=== PATIENT | female | born 1965 | race Caucasian/White ===

== ENCOUNTER → 2016-10-27 | Outpatient (CLI) | payer BC ==
--- NOTE | 2016-10-27 15:30 | DI ---
Indication: ITS.REASON: M79.602 LEFT ARM PAIN PROCEDURE: US VENOUS DUPLEX, UPPER EXT LT: Encounter: Initial Comparison: None Technique: Color Doppler duplex and grayscale sonographic imaging of the left upper extremity was performed. FINDINGS: There is no evidence for acute deep venous thrombosis in the left arm. The left internal jugular, subclavian, axillary and paired brachial veins were evaluated; compression and augmentation were applied where possible. In addition, color and pulsed Doppler demonstrate appropriate spontaneous flow, cardiac pulsatility and variation with respiration. IMPRESSION: No evidence of acute DVT in the left upper extremity. .
== END ==
LOC: IMA 14:32
PROVIDERS: ATTEND Family Medicine
DX: M79.602 Pain in left arm (principal)

== ENCOUNTER → 2016-10-27 | Outpatient (CLI) | payer BC | LOC: IMA 14:39 | PROVIDERS: ATTEND Physician Assistant Medical | DX: L02.412 Cutaneous abscess of left axilla (principal); R22.32 Localized swelling, mass and lump, left upper limb ==

== ENCOUNTER 2017-02-18 12:55 | Observation (INO) ==
[2017-02-18] MEDS ORDERED: HYDROMORPHONE 2 MG/ML INJECTION IVP ONE ×2 (13:10→16:13)
[2017-02-18] MEDS ORDERED: ONDANSETRON 4 MG/2 ML INJECTION IVP ONE (13:10)
[2017-02-18] MEDS ORDERED: NS 1,000 ML IV ONE (13:10)
[2017-02-18] MEDS ORDERED: PROCHLORPERAZINE 10 MG/2 ML INJECTION IVP ONE (13:10)
--- NOTE | 2017-02-18 13:28 | Emergency Department Report ---
Abdominal Pain HPI - General Chief Complaint: Abdominal Pain Stated Complaint: abd pain Time Seen by Provider: 02/18/17 13:09 - History of Present Illness HPI narrative: 51-year-old female with tabs 10 abdominal pain. Pain is midepigastric, severe, intermittent. She was seen by her primary care provider in [place] and referred here for CT scan and further workup. Apparently she was vomiting quite a few times overnight and had diarrhea which was watery. She's been seen in the ER "several times" in the last 2 weeks for abdominal pain. Her states that she was given enemas twice this last week, but did not resolve the pain. Today she went to the clinic to see her doctor, but was sick there and was bad enough that he sent her to the emergency room here. He did call me to let me know that she was coming and that he had ordered labs and CT, but that there CT imaging was down. He recommended we follow up on her and I agreed. - Related Data Home Medications Medication Instructions Recorded Confirmed Lidocaine For Magic Mouthwash 15 ml SSP QID 01/18/17 02/18/17 [Xylocaine Viscous] Oxycodone HCl [Oxycontin] 15 mg PO Q6HPRN 01/18/17 02/18/17 Propranolol HCl [Inderal LA] 60 mg PO BID 01/18/17 02/18/17 Tramadol [Ultram] 50 mg PO Q6HR 01/18/17 02/18/17 raNITIdine HCl [Ranitidine HCl] 300 mg PO BID 01/18/17 02/18/17 Morphine Sulfate 15 mg PO BID 02/18/17 02/18/17 Allergies Allergy/AdvReac Type Severity Reaction Status Date / Time ciprofloxacin [From Cipro] Allergy Severe Hives Verified 02/18/17 13:02 aspirin Allergy Dizziness Verified 02/18/17 13:02 Review of Systems All systems: reviewed and negative except as stated PFSH Patient Stated Medical History Migraine Yes Gastroesophageal Reflux Yes Disease Other Musculoskeletal Yes: fibromyalgia Bipolar Disorder Yes Depression Yes Post Traumatic Stress Disorder Yes Surgical History: Hysterectomy. EGD. Colonoscopy - Social History Smoking status: Never smoker Substance use type: does not use Physical Exam - Limitations Limitations: no limitations - General General appearance: alert, in distress - Normal Exams: Head:: Normocephalic without trauma Chest/Respirations:: Clear all amador, with good airflow, and symmetry bilaterally Cardiovascular:: Regular rate and rhythm, without murmur or gallop, Pulses 2+ all extremities, capillary refill, <2 seconds all extremities Neurological:: Patient is alert, and oriented, cranial nerves, motor/sensory/ cerebellar, exams w/o gross deficits, to observation Psychiatric:: Patient exhibits, appropriate attention, emotion and affect - Abdominal Exam Abdominal exam: Present: soft, tenderness (midepigastric), guarding ( midepigastric), hypoactive bowel sounds Course Vital Signs Temperature 98.3 F 02/18/17 13:02 Pulse Rate 53 L 02/18/17 13:02 Respiratory Rate 17 02/18/17 13:02 Blood Pressure 122/88 02/18/17 13:02 Pulse Oximetry 100 02/18/17 13:02 Temperature 98.3 F 02/18/17 13:02 Pulse Rate 53 L 02/18/17 13:02 Respiratory Rate 17 02/18/17 13:02 Blood Pressure 122/88 02/18/17 13:02 Pulse Oximetry 100 02/18/17 13:02 Abdominal Pain - MDM Narrative Medical decision making narrative: Patient was given 1 L normal saline IV, Compazine 10 mg IV and Zofran 4 mg IV. She continued to have vomiting and had diarrhea bad enough that she needed assistance cleaning up. She was given Dilaudid 0.5 mg IV for pain. Some improvement in symptoms from this. Labs reviewed and white count is 16.1 with a significant left shift, hematocrit is elevated. Creatinine and BUN are normal. Lactate is 2.1. Blood cultures were obtained, stool studies ordered. CT scan shows gastroenteritis and rectosigmoid colitis. Patient will be admitted observation for hydration and pain management. - Lab Data Result diagrams: 02/18/17 13:47 02/18/17 13:47 Disposition Clinical Impression: Gastroenteritis, Colitis Disposition: 02 To OBS [facility] Condition: Improved Prescriptions: No Action Tramadol [Ultram] 50 mg PO Q6HR raNITIdine HCl [Ranitidine HCl] 300 mg PO BID Morphine Sulfate 15 mg PO BID Lidocaine For Magic Mouthwash [Xylocaine Viscous] 15 ml SSP QID Propranolol HCl [Inderal LA] 60 mg PO BID Oxycodone HCl [Oxycontin] 15 mg PO Q6HPRN Referrals: Usama Tellez [Family Provider] - Time of Disposition: 15:37 - Seen By: physician
--- OUTSIDE RECORDS SUMMARY | 2017-02-18 13:38 | External Medical Summary | Summary of Care ---
:1965 Author Name Dg Greer M.D. Address [address], [place] [id number] Care Team Providers Name Role Phone Dg Greer M.D. Unavailable Unavailable Med Jarrell M.D. Unavailable Unavailable Josue Worrell, SUZETTE,, F Krishna Unavailable Unavailable Roberto Worrell, Luisana Troncoso Unavailable Unavailable Korey Greer Primary Care Provider Unavailable Unavailable Unavailable Unavailable Functional Status Functional Status Health Issues Name Dates Details Functional status health issues are not documented Status: Cognitive Status Health Issues Name Dates Details Cognitive status health issues are not documented Status: Problems Name Dates Details Lower back pain (724.2, M54.5) Status: Active Irritable bowel syndrome (564.1, K58.9) Status: Active Migraine headache (346.90, G43.909) Status: Active Seizure disorder (345.90, G40.909) Status: Active Hypertension (401.9, I10) Status: Active Esophageal reflux (530.81, K21.9) Status: Active Dyspepsia (536.8, K30) Status: Active Vitamin B12 deficiency (266.2, E53.8) Status: Active 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 Started 30-Jul-2011 ActivePropranolol HCl - 60 MG Oral Tablet Take One Tablet By Mouth Twice Daily Quantity: 60 Refills: 4 Korey Greer M.D. Started ActiveTraMADol HCl - 50 MG Oral Tablet TAKE 1 OR 2 TABLETS EVERY 6 HOURS NEEDED FOR PAIN, must last 1 month-FILL ON 09/20/2015 Quantity: 240 Refills: 0 Korey Greer M.D. Started 04-Feb-2012 ActivePhenytoin Sodium Extended 100 MG Oral Capsule 3 CAPSULES BY MOUTH EVERY DAY Quantity: 90 Refills: 2 Aba Mejia M.D. Started 09-Feb-2012 ActiveRizatriptan Benzoate 10 MG Oral Tablet Dispersible ONE TABLET BY MOUTH AT ONSET OF HEADACHE MAY REPEAT EVERY 2 HOURS NEEDED MAX 2 IN 24 HOURS Quantity: 6 Refills: 0 Aba Mejia M.D. Started 25-Oct-[address] 400-400-40 MG/5ML Oral Suspension [id number] times dailyas needed for pain. Quantity: 1440 Refills: 3 Georgia Jarrell M.D. Started 09-Jul-2013 Active Allergies and Adverse Reactions Name Dates Details Aspirin TABS Status: Active Ciprofloxacin HCl TABS Status: Active Past Medical History Name Dates Details History of allergy (V15.09, Z88.9) Status: Resolved History of Change in bowel habits (787.99, R19.4) Status: Resolved History of dizziness (V13.89, Z87.898) Status: Resolved History of edema (V13.89, Z87.898) Status: Resolved History of fatigue (V13.89, Z87.898) Status: Resolved History of fibromyositis (V13.59, Z87.39) Status: Resolved History of Generalized pain (780.96, R52) Status: Resolved History of headache (V13.89, Z87.898) Status: Resolved History of headache (V13.89, Z87.898) Status: Resolved History of Infection of kidney (590.9, N15.9) Status: Resolved History of low back pain (V13.59, Z87.39) Status: Resolved History of migraine headaches (V12.49, Z86.69) Status: Resolved History of nausea and vomiting (V12.79, Z87.898) Status: Resolved History of Neck stiffness (723.5, M43.6) Status: Resolved History of Numbness (782.0, R20.0) Status: Resolved History of Palpitations (785.1, R00.2) Status: Resolved History of Pneumonia (V12.61) Status: Resolved History of Recent Change In Weight Status: Resolved History of shortness of breath (V13.89, Z87.898) Status: Resolved History of Sjogrens syndrome (710.2, M35.00) Status: Resolved History of tinnitus (V12.49, Z86.69) Status: Resolved History of Urinary Tract Infection (V13.02) Status: Resolved History of Visual impairment (369.9, H54.7) Status: Resolved Procedures Procedure Dates Details History of Tubal Stabilization History of Cholecystectomy History of Complete Colonoscopy Completed:20-Oct-2009 History of Tonsillectomy History of Hysterectomy History of Colonoscopy (Fiberoptic) History of Dilation And Curettage History of Gastroscopy With Biopsy Completed:28-Sep-2011 History of Upr GI Endosc W/ Balloon Completed:28-Sep-2011 Dilation Of Esoph (Less Than 30 Mm) Comprehensive Metabolic Panel 1212 Ordered:23-Sep-2015 THYROID STIM. HORMONE 3602 Ordered:23-Sep-2015 CBC w/ Auto Diff 7150 Ordered:23-Sep-2015 Immunization Name Dates Details DTaP Administered on:06-Oct-2012 Family History Unknown Family Member Name Dates Details Family history of Hypertension (V17.49) Comments: Family History Status: Active Family history of Reported Cholesterol Level Was High Comments: Family History Status: Active Family history of Glaucoma Comments: Family History Status: Active Family history of Prostate Cancer (V16.42) Comments: Family History Status: Active Family history of Breast Cancer (V16.3) Comments: Family History Status: Active Family history of Malignant Melanoma Of The Skin (V16.8) Comments: Family History Status: Active Family history of Paternal Grandfather At Age ____ Comments: Family History Status: Active Family history of Cancer Comments: Family History Status: Active Family history of Maternal Grandmother Is Comments: Family History Status: Active Family history of Arthritis (V17.7) Comments: Family History Status: Active Family history of Multiple Sclerosis Comments: Family History Status: Active Family history of Chronic Common Migraine (Without Aura) Comments: Family History Status: Active Family history of Systemic Lupus Erythematosus Comments: Family History Status: Active Mother Name Dates Details Family history of Diabetes Mellitus (V18.0) Status: Active Family history of Hyperthyroidism Status: Active Family history of Mother At Age ____ Status: Active Family history of Aneurysm Of The Abdominal Aorta Status: Active Father Name Dates Details Family history of Heart Disease (V17.49) Status: Active Family history of Father At Age ____ Status: Active Family history of Congestive Heart Failure Status: Active Family history of Hypertension (V17.49) Status: Active Family history of Chronic Obstructive Pulmonary Disease Status: Active Family history of Diabetes Mellitus (V18.0) Status: Active Social History Name Dates Details Smoking StatusNever smoker Vital Signs Date Test Result Details 23-Sep-2015 16:18 BP Systolic 126 mm[Hg] Status: BP Diastolic 94 mm[Hg] Status: Weight 174.6 lb Status: Body Mass Index Calculated 29.06 kg/m2 Status: Body Surface Area Calculated 1.87 m2 Status: Results Date Description Value Details Results not documented Plan of Care Planned Observations Name Dates Details Planned Goals not documented Goal Planned Encounters Appointment; Provider: Lauro Rush On 26-Sep-2015 13:30 Appointment; Provider: Cale Pimentel On 02-Sep-2008 13:00 Instructions Instructions not documented Encounters Appointment; Korey Greer On 23-Sep-2015 Encounter Diagnosis: Problem not documented 16:00 Appointment; Korey Greer On 27-Oct-2013 Encounter Diagnosis: Problem not documented 09:45 Appointment; Kelvin Rob On 25-Oct-2013 Encounter Diagnosis: Problem not documented 15:45
--- OUTSIDE RECORDS SUMMARY | 2017-02-18 13:39 | External Medical Summary ---
:1965 Author Organization [facility]. Summary purpose CCDA Sent to [facility] Chief Complaint and Reason for Visit No authorized Reason for Visit (Admitting Diagnosis) is available for this visit. Problem list No authorized problems tracked for continuity of care are available for this visit. Encounters No authorized problems tracked for encounter diagnoses are available for this visit. Medications No medications recorded for this patient visit Allergies, adverse reactions, alerts Allergen Category Ingredient Status Reaction Severity Onset Cipro Drug Cipro Active Cipro Drug ciprofloxacin Active aspirin Drug aspirin Active Immunizations No immunizations recorded for this patient visit Relevant diagnostic tests and/or laboratory data No authorized results are available for this patient visit History of procedures No procedures recorded for this patient visit. Functional status No functional or cognitive status observations are available for this visit. Vital signs Type Value Date Respirations 18 :55 Pulse 85 :55 O2 Saturation 99% :55 Systolic Blood Press 136mm/HG 10-49-193282:55 Diastolic Blood Pres 71mm/HG 70-25-402443:55 Temperature (Fahr) 98.5Degrees 07-04-631713:55 Social history No Social History or smoking status observations were recorded for this visit. ( Unknown if ever smoked.) Treatment Plan No treatment plan text is available for this visit. Hospital discharge instructions No discharge instruction text is available for this visit.
--- OUTSIDE RECORDS SUMMARY | 2017-02-18 13:39 | External Medical Summary ---
:1965 Author Organization [facility]. Summary purpose CCDA Sent to [facility] Chief Complaint and Reason for Visit Admit Diagnosis 1 PEPTIC ULCER NOS Problem list No authorized problems tracked for continuity of care are available for this visit. Encounters No authorized problems tracked for encounter diagnoses are available for this visit. Medications No home medications recorded for this patient visit Allergies, adverse reactions, alerts No allergy information is available for this patient. Immunizations No immunizations recorded for this patient visit Relevant diagnostic tests and/or laboratory data RESULTS CBC :45:00 Result Normal Range Units WBC 5.01 4.8-10.8 x103/mm3 Neutrophil % 60.7 50-70 % Lymph % 28.5 20-50 % Williams % H 10.6 1.0-9.0 % Eosinophil % 0.0 0-4 % Basophil % 0.2 0-2 % Neutrophil # 3.04 3.0-7.0 x103/mm3 Lymph # 1.43 1.0-4.0 x103/mm3 Williams # 0.53 0.0-0.8 x103/mm3 Eosinophil # 0.00 0-0.5 x103/mm3 Basophil # 0.01 0-0.2 x103/mm3 RBC 4.80 4.20-5.40 x103/mm3 HGB 14.6 12.0-16.0 g/dl HCT 43.8 37.0-47.0 % MCV 91.3 81-99 FL MCH 30.4 27.0-31.0 pg MCHC 33.3 32.0-36.0 g/dl RDW 13.8 12-15 % Platelet 181 150-400 x103/mm3 MPV H 12.1 6.0-10.0 FL Chemistry Group :45:00 Result Normal Range Units Sodium 142 134-145 mmol/L Potassium 4.2 3.6-5.0 mmol/L Chloride 102 98-107 mmol/L CO2 29 22-30 mmol/L Glucose 109 75-110 mg/dl BUN 13 9-20 mg/dl Creatinine .9 0.8-1.7 mg/dl Total Protein 7.2 6.3-8.2 g/dl Albumin 4.0 3.5-5.0 g/dl Calcium 9.5 8.4-10.2 mg/dl Alk Phos 53 38-126 U/L AST 23 14-36 U/L ALT 13 11-66 U/L T Bili .3 0.2-1.3 mg/dl A/G Ratio 1.3 Ratio History of procedures Procedure Code Code Type Description Date Performed Performing Physician 42626 CPT-4 COMPLETE CBC AUTOMATED 01-13-2015 JANIS BURRIS 46871 CPT-4 COMPREHEN METABOLIC 01-13-2015 JANIS BURRIS PANEL Functional status No functional or cognitive status observations are available for this visit. Vital signs No authorized vital signs are available for this visit. Social history No Social History or smoking status observations were recorded for this visit. ( Unknown if ever smoked.) Treatment Plan No treatment plan text is available for this visit. Hospital discharge instructions No discharge instruction text is available for this visit.
--- OUTSIDE RECORDS SUMMARY | 2017-02-18 13:39 | External Medical Summary ---
:1965 Author Organization [facility]. Summary purpose CCDA Sent to [facility] Chief Complaint and Reason for Visit No [...]
--- OUTSIDE RECORDS SUMMARY | 2017-02-18 13:39 | External Medical Summary ---
:1965 Author Organization [facility]. Summary purpose CCDA Sent to [facility] Chief Complaint and Reason for Visit Admit Diagnosis 1 BURNING WITH URINATION Problem list No authorized problems tracked for [...] Relevant diagnostic tests and/or laboratory data RESULTS Urinalysis :00:00 Result Normal Range Units Site UNK Color Yellow Urine Appearance Turbid Specific [place] 1.030 1.005-1.030 pH 5.5 5.0-9.0 Protein Negative Negative Glucose Negative Negative Ketones Negative Negative Bilirubin Negative Negative Blood Negative Negative Nitrite Negative Negative Urobilinogen 0.2 0.20 mg/dl Leukocyte Negative Negative Amorphous Crystals 4+ Calcium Oxalate Crystals 1+ Squamous Epi's N6-10 Urine Bacteria NONESEEN Urine WBC N0-2 Reference Lab Group :00:00 Result Normal Range Units Culture Urine See Comment .Site: Received : 04/16/16 19:37 .Order#: [id number] Urine Culture FINAL 04/17/16 15:06 S .Normal urogenital/skin santiago present .S: Performed at:[place], [place] CLIA#[id number] DENT FOR RESULTS: * - NEW RESULT - RESULT WAS MODIFIED AFTER FINAL STATUS SET Urine Culture performed at [facility] Reference Lab, [address] [place] [address] Entry Engineer Belia Fay DO Urinalysis with Microscopic :00:00 Result Normal Range Units Site UNK Color Yellow Urine Appearance Turbid Specific [place] 1.030 1.005-1.030 pH 5.5 5.0-9.0 Protein Negative Negative Glucose Negative Negative Ketones Negative Negative Bilirubin Negative Negative Blood Negative Negative Nitrite Negative Negative Urobilinogen 0.2 0.20 mg/dl Leukocyte Negative Negative Amorphous Crystals 4+ Calcium Oxalate Crystals 1+ Squamous Epi's N6-10 Urine Bacteria NONESEEN Urine WBC N0-2 History of procedures No procedures recorded for this patient visit. Functional status Cognitive Status Finding Observation Time Level of Consciousne Alert :31 Oriented to Person Yes :[address] Yes :31 Oriented to Time Yes :31 Vital signs Type Value Date Respirations 16 :58 Pulse 78 :58 O2 Saturation 95% :58 Systolic Blood Press 152mm/HG :58 Diastolic Blood Pres 56mm/HG :58 Temperature (Fahr) 98.1Degrees :58 Social history Type Value Smoking Status NEVER SMOKER Treatment Plan No treatment plan text is available for this visit. Hospital discharge instructions No discharge instruction text is available for this visit.
--- OUTSIDE RECORDS SUMMARY | 2017-02-18 13:39 | External Medical Summary | Summary of Care ---
:1965 Author Name Wesly Worrell, Med November Address [address] [place], [place] [id number] Care Team Providers Name Role Phone Dg Greer M.D. Unavailable Unavailable Wesly Worrell, Med November Unavailable Unavailable Josue Worrell, FACP,, F Krishna Unavailable Unavailable Luisana Mejia M.D. Unavailable Unavailable Korey Greer Primary Care Provider Unavailable Unavailable Unavailable Unavailable Functional Status Functional Status Health Issues Name Dates Details Functional status health issues are not documented Status: Cognitive Status Health Issues Name Dates Details Cognitive status health issues are not documented Status: Problems Name Dates Details Fever (780.60, R50.9) Status: Active Lower back pain (724.2, M54.5) Status: Active Dysuria (788.1, R30.0) Status: Active Irritable bowel syndrome (564.1, K58.9) Status: Active Migraine headache (346.90, G43.909) Status: Active Seizure disorder (345.90, G40.909) Status: Active Tendonitis, Achilles (726.71, M76.60) Status: Active Hypertension (401.9, I10) Status: Active Esophageal reflux (530.81, K21.9) Status: Active Dyspepsia (536.8, R10.13) Status: Active Encounter for screening for malignant neoplasm of colon (V76.51, Z12.11) Status: Active Muscle weakness of lower extremity (728.87, M62.81) Status: Active Bursitis of hip (726.5, M70.70) Status: Active Vitamin B12 deficiency (266.2, E53.8) Status: Active Female pelvic pain (625.9, R10.2) Status: Active 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 [facility], Started 09-Oct-2008 ActiveMaxalt-DIGITAL MEDIA BUYER 10 MG Oral Tablet Dispersible TAKE ONE TABLET BY MOUTH AT ONSET OF HEADACHE. MAY REPEAT EVERY 2 HOURS NEEDED. MAX OF 3 TALBETS IN 24 HOURS. Quantity: 6 Refills: 0 Korey Greer M.D. Started 15-Jun-2010 ActivePromethazine HCl - 25 MG Oral Tablet TAKE ONE TABLET BY MOUTH EVERY 6 HOURS Quantity: 30 Refills: 0 Korey Greer M.D. Started 30-Jul-2011 ActiveRanitidine HCl - 150 MG Oral Tablet take two tablets by mouth twice daily Quantity: 120 Refills: 12 Georgia Jarrell M.D. Started 28-Sep-2011 ActivePropranolol HCl - 60 MG Oral Tablet Take One Tablet By Mouth Twice Daily Quantity: 60 Refills: 4 Korey Greer M.D. Started ActiveTraMADol HCl - 50 MG Oral Tablet TAKE 1 OR 2 TABLETS EVERY 6 HOURS NEEDED FOR PAIN Quantity: 240 Refills: 0 Korey Greer M.D. [...] Advanced Max St 400-400-40 MG/5ML Oral Suspension [id number] times dailyas needed for pain. Quantity: 1440 Refills: 3 Georgia Jarrell M.D. Started 09-Jul-2013 ActiveTopamax 100 MG Oral Tablet TAKE 1 TABLET TWICE DAILY. Refills: 0 Started 25-Oct-2013 ActiveTiZANidine HCl - 4 MG Oral Tablet TAKE 1 TABLET 3 TIMES DAILY. Refills: 0 Started 25-Oct-2013 ActiveMethylPREDNISolone (Joseph) 4 MG Oral Tablet TAKE DIRECTED ON PATIENT INSTRUCTION CARD. Quantity: 1 Refills: 0 Korey Greer M.D. Started Active Allergies and Adverse Reactions Name Dates [...] Resolved History of nausea and vomiting (V12.79, Z87.19) Status: Resolved History of Neck stiffness (723.5, [...] History of Upr GI Endosc W/ Balloon Dilation Of Esoph Completed:28-Sep-2011 (Less Than 30 Mm) Procedures not documented Immunization Name Dates Details DTaP Administered on:06-Oct-2012 [...] smoker Vital Signs Date Test Result Details No Known Vitals to report Results Date Description Value Details Results not documented Plan of Care Planned Observations Name Dates Details Planned Goals not documented Goal Planned Encounters Appointment; Provider: Cale Pimentel On 02-Sep-2008 13:00 Instructions Instructions not documented Encounters Appointment; Korey Greer On 27-Oct-2013 Encounter Diagnosis: Problem not documented 09:45 Appointment; Kelvin Rob On 25-Oct-2013 Encounter Diagnosis: Problem not documented 15:45 Appointment; Krishna Salas On 08-Aug-2013 Encounter Diagnosis: Problem not documented 15:45 Appointment; Aba Mejia On 22-Jun-2013 Encounter Diagnosis: Problem not documented 14:00 Appointment; Erica Benz On 23-Feb-2013 Encounter Diagnosis: Problem not documented 15:00 Appointment; Kelvin Rob On 25-Jan-2013 Encounter Diagnosis: Problem not documented 16:30
--- OUTSIDE RECORDS SUMMARY | 2017-02-18 13:39 | External Medical Summary ---
:1965 Author Organization [facility]. Summary purpose CCDA Sent to [facility] Chief Complaint and Reason for Visit Admit Diagnosis 1 L CALF PAIN Problem list No authorized problems tracked for [...] for this patient visit History of procedures Procedure Code Code Type Description Date Performed Performing Physician 45835 CPT-4 EMERGENCY DEPT VISIT 10-29-2016 TALHA NOEL Functional status Cognitive Status Finding Observation Time Level of Consciousne Alert [id number] Oriented to Person Yes [id number]:[address] Yes [id number]:36 Oriented to Time Yes 14-19-318824:36 Vital signs Type Value Date Respirations 18 44-73-150210:40 Pulse 73 :40 O2 Saturation 97% :40 Systolic Blood Press 132mm/HG :40 Diastolic Blood Pres 95mm/HG 18-72-485096:40 Temperature (Fahr) 98.9Degrees 17-14-090983:40 Social history Type Value Smoking Status NEVER SMOKER Treatment Plan No treatment plan text is available for this visit. Hospital discharge instructions No discharge instruction text is available for this visit.
--- OUTSIDE RECORDS SUMMARY | 2017-02-18 13:39 | External Medical Summary ---
:1965 Author Organization [facility]. Summary purpose CCDA Sent to [facility] Chief Complaint and Reason for Visit [...] diagnostic tests and/or laboratory data RESULTS CBC [id number]:23:00 Result Normal Range Units WBC H 11.79 4.8-10.8 x103/mm3 Neutrophil % H 70.8 50-70 % Lymph % L 19.6 20-50 % [place] % 8.7 1.0-9.0 % Eosinophil % 0.8 0-4 % Basophil % 0.1 0-2 % Neutrophil # H 8.36 3.0-7.0 x103/mm3 Lymph # 2.31 1.0-4.0 x103/mm3 [place] # H 1.02 0.0-0.8 x103/mm3 Eosinophil # 0.09 0-0.5 x103/mm3 Basophil # 0.01 0-0.2 x103/mm3 RBC 4.75 4.20-5.40 x103/mm3 HGB 14.1 12.0-16.0 g/dl HCT 42.9 37.0-47.0 % MCV 90.3 81-99 FL MCH 29.7 27.0-31.0 pg MCHC 32.9 32.0-36.0 g/dl RDW 13.1 12-15 % Platelet H 422 150-400 x103/mm3 MPV 9.8 6.0-10.0 FL History of procedures Procedure Code Code Type Description Date Performed Performing Physician [id number] CPT-4 COMPLETE CBC, 10-26-2016 JANIS FELICIANO AUTOMATED Functional status No functional or cognitive status [...]
--- OUTSIDE RECORDS SUMMARY | 2017-02-18 13:39 | External Medical Summary ---
:1965 Author Organization [facility]. Summary purpose CCDA Sent to [facility] Chief Complaint and Reason for Visit Admit Diagnosis 1 CHEST PAIN Problem list No authorized problems tracked for continuity of care are available for this visit. Encounters No authorized problems tracked for encounter diagnoses are available for this visit. Medications No medications recorded for this patient visit Allergies, adverse reactions, alerts Allergen Category Ingredient Status Reaction Severity Onset Cipro Drug Cipro Active Cipro Drug ciprofloxacin Active Immunizations No immunizations recorded for this patient visit Relevant diagnostic tests and/or laboratory data RESULTS CBC :10:00 Result Normal Range Units WBC 5.09 4.8-10.8 x103/mm3 Neutrophil % L 48.1 50-70 % Lymph % 42.8 20-50 % [place] % 7.9 1.0-9.0 % Eosinophil % 1.0 0-4 % Basophil % 0.2 0-2 % Neutrophil # L 2.45 3.0-7.0 x103/mm3 Lymph # 2.18 1.0-4.0 x103/mm3 [place] # 0.40 0.0-0.8 x103/mm3 Eosinophil # 0.05 0-0.5 x103/mm3 Basophil # 0.01 0-0.2 x103/mm3 RBC 5.26 4.20-5.40 x103/mm3 HGB 15.5 12.0-16.0 g/dl HCT 45.6 37.0-47.0 % MCV 86.7 81-99 FL MCH 29.5 27.0-31.0 pg MCHC 34.0 32.0-36.0 g/dl RDW 12.9 12-15 % Platelet 317 150-400 x103/mm3 MPV H 11.0 6.0-10.0 FL Chemistry Group :10:00 Result Normal Range Units Sodium 135 134-145 mmol/L Potassium 4.4 3.6-5.0 mmol/L Chloride L 97 98-107 mmol/L CO2 24 22-30 mmol/L Glucose H 125 75-110 mg/dl BUN 10 9-20 mg/dl Creatinine .95 0.8-1.7 mg/dl eGFR 63 ml/min. Total Protein 7.5 6.3-8.2 g/dl Albumin 4.2 3.5-5.0 g/dl Calcium 9.9 8.4-10.2 mg/dl Alk Phos 85 38-126 U/L AST 25 14-36 U/L ALT 32 11-66 U/L T Bili .7 0.2-1.3 mg/dl A/G Ratio 1.3 Ratio Coagulation Group :10:00 Result Normal Range Units Protime 11.4 9.5-12.3 Sec INR 1.0 Special Chemistry Group :10:00 Result Normal Range Units Troponin I < 0.06 ng/ml NEGATIVE - 0.06-0.30 ng/ml INCONCLUSIVE - 0.31-0.64 ng/ml; Suggest Repeating in 2-4 hours POSITIVE - >0.64 ng/ml; Probable AMI History of procedures No procedures recorded for this patient visit. Functional status Cognitive Status Finding Observation Time Level of Consciousne Alert :43 Oriented to Person Yes :[address] Yes [id number]:43 Oriented to Time Yes [id number]:43 Vital signs Type Value Date Respirations 16 29-73-415814:10 Pulse 64 :10 O2 Saturation 100% :10 Systolic Blood Press 152mm/HG :10 Diastolic Blood Pres 98mm/HG 31-31-364662:10 Temperature (Fahr) 98.9Degrees :18 Social history Type Value Smoking Status NEVER SMOKER Treatment Plan No treatment plan text is available for this visit. Hospital discharge instructions No discharge instruction text is available for this visit.
[2017-02-18] MEDS ORDERED: NS 100 ML ONE (14:02)
[2017-02-18] MEDS ORDERED: IOHEXOL 300mg/ml 100ml INJECTION ONE (14:02)
[2017-02-18] MEDS ORDERED: SALINE FLUSH 10ml SYRINGE ONE (14:02)
--- NOTE | 2017-02-18 15:05 | CT Scan Report ---
Indication: abd pain, n/v PROCEDURE: CT abdomen pelvis w con: Encounter: Initial Comparison: None Technique: Axial CT images were performed through the abdomen and pelvis after the administration of intravenous contrast. Coronal and sagittal two-dimensional reformats. Automated Exposure Control and Iterative Reconstruction dose reducing techniques were utilized. Contrast: Omnipaque 300 100 mL Findings: The lung bases are clear. The liver is normal. Gallbladder is surgically absent. The spleen, pancreas and adrenal glands are within normal limits. Kidneys are normal. Multiple vascular coils seen in the left ovarian vein. No abdominal or pelvic lymphadenopathy. Bladder is decompressed. Uterus is surgically absent. No free fluid. There is suggestion of wall thickening in the rectosigmoid colon which is incompletely evaluated without oral contrast in this region. Colon is decompressed overall. The appendix is normal. No evidence of a small bowel obstruction. Fluid-filled nondilated small bowel loops seen in the pelvis. Bone windows show no acute findings. Impression: Possible gastroenteritis and rectosigmoid colitis. No evidence of bowel obstruction. .
--- NOTE | 2017-02-18 15:51 | History & Physical Report ---
<Lindsay Dow - Last Filed: 02/18/17 17:51> History of Present Illness Date: 02/18/17 Chief complaint: abdominal pain and vomiting HPI: Patient is a 51-year-old female Dr. Usama Tellez. She presented to his office today in [place] with abdominal pain and vomiting which started last night. She had been seen 02/14/17 in the [place] ER due to abdominal pain which was thought to be caused by constipation. She was given 2 enemas which she reports improved her symptoms. She started MiraLAX and reports her last dose was Tuesday. She wonders if that is what has caused her current symptoms. She states last evening she started to have abdominal pain and some nausea. She was unable to keep any of her bedtime medications down last night due to nausea and vomiting. She states the pain progressed overnight and she was unable to take any pills this morning. When she was seen in the office this morning, she reports her pain was 10/10. She was transferred to [facility] emergency room because the CT machine was down in the [place] clinic. In the emergency department she was given IV fluids, Compazine, Zofran, and Dilaudid. She had some improvement with her symptoms. Her CT showed gastroenteritis and rectosigmoid colitis. Given her continued need for IV fluids and pain control, patient was admitted to observation under the hospitalist service. Patient seen lying in bed with her present. She appears to be in pain, but is easily distractible. She rates her pain now 8/10. She reports her last bout of vomiting and diarrhea was in the emergency room. She has not noted any blood in her emesis or stool. States she normally has problems with constipation. Can usually go 2-3 weeks without a bowel movement. Last colonoscopy (by Dr. Silva, transistor tester) approximately 4 years ago. She reports it was negative. At that time she also had an EGD which showed scarring and required dilation. Review of Systems Comprehensive ROS: completed and no additional positive findings except those as stated - EENMT Mouth/Throat: Present: dry mouth - Cardiovascular Cardiovascular: Present: chest pain - Respiratory Respiratory: Present: dyspnea - Gastrointestinal Gastrointestinal: Present: abdominal pain, change in bowel habits, diarrhea, nausea, vomiting. Absent: hematemesis, hematochezia PFSH Essential hypertension Irritable bowel syndrome Sjogren's syndrome Depression Migraine headaches PUD Esophageal scarring Pernicious anemia Chronic pain Fibromyalgia Rheumatoid arthritis Seizure disorder (last seizure 2012) Restless leg syndrome Surgical History: Hysterectomy and Unilateral oophorectomy due to adenomyosis ( per patient). Cholecystectomy. Bartholin gland procedure. Tubal ligation. Multiple exploratory laparoscopies due to multiple miscarriages. EGD - 2012. Colonoscopy-2012. "Coils in groin veins" (performed by Dr. Villela, interventional radiologist) Family History: Father - at age 80. CHF, carotid artery stenosis, CAD, HTN, hyperlipidemia Mother- at age 72. 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 Brito (sees yearly for pernicious anemia) Previously saw: (pt reports Dr. 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 Warren Logging Equipment Operator Dr. Silva Pain Management-PANKAJ Yoo Vein specialist-Dr Norris Medications Home Medications Medication Instructions Recorded Confirmed Type Oxycodone HCl [Oxycontin] 15 mg PO Q4H PRN 01/18/17 02/18/17 History Propranolol HCl [Inderal LA] 60 mg PO BID 01/18/17 02/18/17 History Tramadol [Ultram] 50 mg PO Q6HR PRN 01/18/17 02/18/17 History Carboxymethylcell/Hypromellose 2 drop EACH EYE QID 02/18/17 02/18/17 History [Genteal Gel Drops] Cyanocobalamin (B-12) [Vit. B-12] 1,000 mcg IM Q30D 02/18/17 02/18/17 History Docusate Sodium [Colace] 100 mg PO TID 02/18/17 02/18/17 History Lansoprazole [Prevacid] 15 mg PO DAILY 02/18/17 02/18/17 History Magic Mouthwash [Magic Mouthwash 15 ml SSP QID 02/18/17 02/18/17 History (Lido/Maalox/Carafate)] Morphine Sulfate 15 mg PO BID 02/18/17 02/18/17 History Rizatriptan [Maxalt Budget Report Clerk 10 mg] 10 mg PO PRN PRN 02/18/17 02/18/17 History Allergies Allergy/AdvReac Type Severity Reaction Status Date / Time ciprofloxacin [From Cipro] Allergy Severe Hives Verified 02/18/17 13:02 aspirin Allergy Dizziness Verified 02/18/17 13:02 Exam Vital Signs: Temperature 98.3 F 02/18/17 13:02 Pulse Rate 55 L 02/18/17 14:00 Respiratory Rate 02/18/17 14:00 Blood Pressure 128/72 02/18/17 14:00 Pulse Oximetry 95 02/18/17 14:00 - Constitutional Present: well nourished, well developed, cooperative Comments: appears to be in pain, but when distracted, appears pain free. Smiles and answers questions appropriately. - Routine HEENT Exam Eye: Present: EOMI, PERRL ENT: Present: mucous membranes moist, dentition normal - Routine Neck Exam Present: supple, full ROM - Routine Respiratory Exam Present: CTA bilaterally. Absent: wheezes - Routine Cardiovascular Exam Present: RRR, S1, S2. Absent: murmur - Routine Abdominal Exam Present: soft, tenderness (moderate epigastric pain . Mild diffuse lower abdominal pain with palpation.), non distended. Absent: normoactive bowel sounds (hyperactive), rigid, organomegaly, mass, bruit - Routine Extremities Exam Present: no edema, normal capillary refill - Routine Skin Exam Present: dry, warm - Routine Neurological Exam Present: alert, oriented X3 CN 3-12 intact - Routine Psychiatric Exam Present: normal affect, normal thought process, cooperative Results - Labs CBC & Chem 7: 02/18/17 13:47 02/18/17 13:47 Labs: Laboratory Tests 02/18/17 13:47 Lipase 39 Plasma Lactate 2.1 Laboratory Tests 02/18/17 13:47 Troponin I < 0.012 UA pending Microbiology Results: GI panel pending - Imaging and Cardiology CT scan - abdomen Additional comments: Findings: The lung bases are clear. The liver is normal. Gallbladder is surgically absent. The spleen, pancreas and adrenal glands are within normal limits. Kidneys are normal. Multiple vascular coils seen in the left ovarian vein. No abdominal or pelvic lymphadenopathy. Bladder is decompressed. Uterus is surgically absent. No free fluid. There is suggestion of wall thickening in the rectosigmoid colon which is incompletely evaluated without oral contrast in this region. Colon is decompressed overall. The appendix is normal. No evidence of a small bowel obstruction. Fluid-filled nondilated small bowel loops seen in the pelvis. Bone windows show no acute findings. Impression: Possible gastroenteritis and rectosigmoid colitis. No evidence of bowel obstruction. Assessment and Plan DVT Prophylaxis: SCD's, Lovenox GI Prophylaxis: other (Prevacid) Resuscitation Status: Full Code Assessment and Plan: Assessment Severe abdominal pain with vomiting and diarrhea with CT evidence of gastroenteritis and rectosigmoid colitis Leukocytosis Hyperglycemia with no diagnosis of diabetes mellitus Hypernatremia (POA) Essential hypertension Irritable bowel syndrome Sjogren's syndrome Depression Migraine headaches PUD Esophageal scarring Pernicious anemia Chronic pain Fibromyalgia Rheumatoid arthritis Seizure disorder (last seizure 2012) Restless leg syndrome Plan Admit to observation status under the hospitalist service, Dr. Lao attending, for management of severe abdominal pain, vomiting and diarrhea. IV fluids for rehydration IV Dilaudid for pain control. Will resume her routine chronic pain medications ( morphine and oxycodone) as soon as tolerated. Zofran IV PRN nausea/vomiting. NPO and advance to clear liquids as tolerated. SCDs and Lovenox for DVT prevention. GI panel/C. difficile for further investigation into cause of symptoms. Pantoprazole 40 mg IV daily for GI protection and epigastric pain. Check A1c given her elevated glucose on admission. Elevation could be due to pain, however, on review of lab results from 02/14/17 ER visit, glucose was 175. Patient requests to be a full code. This order is written. Patient's care will be returned to Dr. Usama Tellez upon discharge. Hospital Course Summary Disclaimer: The visit summary below is not to be considered part of the above Progress Note. Hospital Course: Assessment Severe abdominal pain with vomiting and diarrhea with CT evidence of gastroenteritis and rectosigmoid colitis Leukocytosis Hyperglycemia with no diagnosis of diabetes mellitus Hypernatremia (POA) Essential hypertension Irritable bowel syndrome Sjogren's syndrome Depression Migraine headaches PUD Esophageal scarring Pernicious anemia Chronic pain Fibromyalgia Rheumatoid arthritis Seizure disorder (last seizure 2012) Restless leg syndrome 02/18/17 hospital admission for observation Admit to observation status under the hospitalist service, Dr. Lao attending, for management of severe abdominal pain, vomiting and diarrhea. IV fluids for rehydration IV Dilaudid for pain control. Will resume her routine chronic pain medications ( morphine and oxycodone) as soon as tolerated. Zofran IV PRN nausea/vomiting. NPO and advance to clear liquids as tolerated. SCDs and Lovenox for DVT prevention. GI panel/C. difficile for further investigation into cause of symptoms. Pantoprazole 40 mg IV daily for GI protection and epigastric pain. Check A1c given her elevated glucose on admission. Elevation could be due to pain, however, on review of lab results from 02/14/17 ER visit, glucose was 175. Patient requests to be a full code. This order is written. Patient's care will be returned to Dr. Usama Tellez upon discharge. <Nyasia Lao - Last Filed: 02/18/17 20:19> History of Present Illness Date: 02/18/17 Exam Vital Signs: Temperature 97.1 F 02/18/17 15:52 Pulse Rate 68 02/18/17 15:52 Respiratory Rate 18 02/18/17 15:52 Blood Pressure 139/79 02/18/17 15:52 Pulse Oximetry 100 02/18/17 15:52 Height/Weight/BMI: Height 1.6 m Weight 78.1 kg Body Mass Index 30.4 Results - Labs CBC & Chem 7: 02/18/17 13:47 02/18/17 13:47 Assessment and Plan Assessment and Plan: I have independently evaluated and examined this patient. I reviewed the chart, the patient's history, and the DOMESTIC VIOLENCE ADVOCATE/PA's documented findings as above. We discussed and formulated the assessment and plan as above with additions as below: Mrs. Manrique presents with feeling "yucky" for 2 days couple of episodes of emesis 2 days ago followed by onset of recurrent nausea, vomiting, and diarrhea starting around midnight last night. Diarrhea has evolved to just watery stools and emesis to bilious fluid that she's had no melena, hematemesis, hematochezia. Acute GI symptoms were preceded by abdominal pain and generalized cramping. She describes feeling hot and cold and dizzy but denies palpitations. She's been somewhat lightheaded but has not had a syncopal event. No family members have been ill and she is not aware of any suspicious food ingestion. The patient was relatively comfortable when seen. Blood pressure 139/79 Speech fluent Respirations nonlabored, good airflow, breath sounds clear Cardiac exam regular, S1 and S2, no tachycardia Abdomen soft, mildly distended, bowel sounds diminished, no focal findings. Leukocytosis present; creatinine stable compared to recent data. CT abdomen and pelvis reviewed-thickening of the reyes in the rectosigmoid colon consistent with colitis/gastroenteritis. Symptomatic management and reassess symptoms in the morning. Hemoglobin 16.8-consistent with dehydration/hemoconcentration. May require treatment for acute colitis after upper symptoms stabilized. CT reviewed by myself, discussed with Dr. Jeong, laboratory data reviewed, recent laboratory data reviewed. Hospital Course Summary Disclaimer: The visit summary below is not to be considered part of the above Progress Note.
[2017-02-18] MEDS: SALINE FLUSH 10ml SYRINGE IVF PRN ×2 (16:17→18:58)
[2017-02-18 17:20] VITALS: BMI 30.4
[2017-02-18] MEDS: PANTOPRAZOLE 40 MG INJECTION IVP SCH (18:46)
[2017-02-18] MEDS: ENOXAPARIN 40 MG/0.4 ML INJECTION SQ SCH (18:46)
[2017-02-18] MEDS: NS 1,000 ML IV SCH (18:47)
[2017-02-18] MEDS: ONDANSETRON 4 MG/2 ML INJECTION IVP PRN (18:48)
[2017-02-18] MEDS: HYDROMORPHONE 2 MG/ML INJECTION IVP PRN (18:59)
[2017-02-18] MEDS ORDERED: TRAMADOL 50 MG TABLET PO PRN (20:15)
[2017-02-18] MEDS ORDERED: [UNRECOGNIZED DRUG - OTHER] PO PRN (20:15)
[2017-02-18] MEDS: PROPRANOLOL LA 60 MG CAPSULE PO SCH (21:44)
[2017-02-19] MEDS: HYDROMORPHONE 2 MG/ML INJECTION IVP PRN ×5 (00:05→23:28)
[2017-02-19] MEDS: SALINE FLUSH 10ml SYRINGE IVF PRN ×2 (00:09→23:29)
[2017-02-19] MEDS: ONDANSETRON 4 MG/2 ML INJECTION IVP PRN (02:07)
[2017-02-19] MEDS: NS 1,000 ML IV SCH ×3 (03:20→20:11)
[2017-02-19] MEDS: PROPRANOLOL LA 60 MG CAPSULE PO SCH ×2 (09:08→20:46)
[2017-02-19] MEDS: ENOXAPARIN 40 MG/0.4 ML INJECTION SQ SCH (09:08)
[2017-02-19] MEDS: PANTOPRAZOLE 40 MG INJECTION IVP SCH (09:08)
[2017-02-19] MEDS: Oxycodone *IR* 15 MG TABLET PO PRN ×2 (10:47→17:03)
[2017-02-19] MEDS ORDERED: SCOPOLAMINE 1.5 MG PATCH TD SCH (14:45)
[2017-02-19] MEDS: ONDANSETRON ODT 4 MG TABLET PO PRN ×2 (15:09→19:45)
[2017-02-19 16:47] VITALS: RESP 16
[2017-02-19] MEDS: Hyoscyamine 0.125 MG SL tab SL SCH ×3 (18:37→23:33)
--- NOTE | 2017-02-19 19:44 | Progress Note ---
Subjective: Santana reports ongoing abd cramping and retching. She didn't have any emesis until early this evening. She tolerated small volume clear liquids earlier today but nausea and abd discomforted have limited intake. Had no further diarrhea. She reports sleeping poorly. She had no fever and denies lightheadedness or dyspnea. Objective Vital signs: Temperature 96.8 F 02/19/17 16:45 Pulse Rate 70 02/19/17 16:45 Respiratory Rate 16 02/19/17 16:45 Blood Pressure 113/57 02/19/17 16:45 Pulse Oximetry 96 02/19/17 16:45 I/O 2815/300 weight up 4 kg EXAM General-fatigued appearing female, appears moderately uncomfortable HEENT-sclera anicteric, conjunctiva clear, oral membranes clear Lungs-respirations nonlabored, good airflow, breath sounds clear Cardiac-regular rhythm, S1 and S2 Abd-abdomen soft, mild-moderate tenderness in the epigastrium (palpation causes patient to retch), bowel sounds present Ext-without edema Neuro-MAEW Psych-anxious - Height/Weight/BMI: Height 1.6 m Weight 82.2 kg Body Mass Index 30.4 Results - Labs CBC & Chem 7: 02/19/17 04:32 02/19/17 04:32 Assessment and Plan (1) Gastroenteritis Current visit: Yes Status: Acute (2) Colitis Current visit: Yes Status: Acute DVT Prophylaxis: Lovenox GI Prophylaxis: Protonix Resuscitation Status: Full Code Assessment and Plan: Assessment Severe abdominal pain with vomiting and diarrhea with CT evidence of gastroenteritis and rectosigmoid colitis Dehydration Leukocytosis Hyperglycemia with no diagnosis of diabetes mellitus Hypernatremia (POA) Essential hypertension Irritable bowel syndrome Sjogren's syndrome Depression Migraine headaches PUD Esophageal scarring Pernicious anemia Chronic pain Fibromyalgia Rheumatoid arthritis Seizure disorder (last seizure 2012) Restless leg syndrome Plan Santana was seen on 3 occasions throughout the day with initial hope to be able to discharge home as symptoms stabilized. Diarrhea has subsided and she's had minimal emesis but pain control remains problematic and she is unable to maintain oral intake. IV fluids will be continued. Extended release morphine resumed earlier today for chronic pain control in conjunction with OxyIR-home regimen. Levsin SL added for cramping but continues to have significant epigastric and upper abdominal discomfort with retching and vomiting this evening. Hemoconcentration improved with fluids overnight, calcium is normalized. Continue to monitor electrolytes. Blood pressure stable. Repeat blood sugar normal this morning. Discussed with nursing throughout the day, high-risk medications in use. Discussed with patient's . - Time spent with patient greater than 35 minutes Coordination of Care: >50% of visit spent providing counseling/coordination of care Sepsis Assessment - Evaluation Sepsis screening result: No Definite Risk Hospital Course Summary Disclaimer: The visit summary below is not to be considered part of the above Progress Note. Hospital Course: Assessment Severe abdominal pain with vomiting and diarrhea with CT evidence of gastroenteritis and rectosigmoid colitis Leukocytosis Hyperglycemia with no diagnosis of diabetes mellitus Hypernatremia (POA) Essential hypertension Irritable bowel syndrome Sjogren's syndrome Depression Migraine headaches PUD Esophageal scarring Pernicious anemia Chronic pain Fibromyalgia Rheumatoid arthritis Seizure disorder (last seizure 2012) Restless leg syndrome 02/18/17 hospital admission for observation Admit to observation status under the hospitalist service, Dr. Lao attending, for management of severe abdominal pain, vomiting and diarrhea. IV fluids for rehydration IV Dilaudid for pain control. Will resume her routine chronic pain medications ( morphine and oxycodone) as soon as tolerated. Zofran IV PRN nausea/vomiting. NPO and advance to clear liquids as tolerated. SCDs and Lovenox for DVT prevention. GI panel/C. difficile for further investigation into cause of symptoms. Pantoprazole 40 mg IV daily for GI protection and epigastric pain. Check A1c given her elevated glucose on admission. Elevation could be due to pain, however, on review of lab results from 02/14/17 ER visit, glucose was 175. Patient requests to be a full code. This order is written. Patient's care will be returned to Dr. Usama Tellez upon discharge. 02/19/17 19:50 Santana was seen on 3 occasions throughout the day with initial hope to be able to discharge home as symptoms stabilized. Diarrhea has subsided and she's had minimal emesis but pain control remains problematic and she is unable to maintain oral intake. IV fluids will be continued. Extended release morphine resumed earlier today for chronic pain control in conjunction with OxyIR-home regimen. Levsin SL added for cramping but continues to have significant epigastric and upper abdominal discomfort with retching and vomiting this evening. Hemoconcentration improved with fluids overnight, calcium is normalized. Continue to monitor electrolytes. Repeat blood sugar normal this morning. Blood pressure stable. 02/19/17 19:51
[2017-02-20 00:32] VITALS: O2SAT 97
[2017-02-20 01:16] VITALS: PULSE 64
[2017-02-20] MEDS: Hyoscyamine 0.125 MG SL tab SL SCH ×4 (03:40→11:03)
[2017-02-20] MEDS: HYDROMORPHONE 2 MG/ML INJECTION IVP PRN (03:41)
[2017-02-20] MEDS: ONDANSETRON 4 MG/2 ML INJECTION IVP PRN (03:42)
[2017-02-20 07:44] VITALS: BP 119/66; TEMP 97.7
[2017-02-20] MEDS: NS 1,000 ML IV SCH (07:56)
[2017-02-20] MEDS: PANTOPRAZOLE 40 MG INJECTION IVP SCH (08:29)
[2017-02-20] MEDS: ONDANSETRON ODT 4 MG TABLET PO PRN ×2 (08:31→13:08)
[2017-02-20] MEDS: PROPRANOLOL LA 60 MG CAPSULE PO SCH (08:31)
[2017-02-20] MEDS: ENOXAPARIN 40 MG/0.4 ML INJECTION SQ SCH (08:32)
[2017-02-20] MEDS: REFRESH CLASSIC Eye Drops 0.4ml EACH EYE SCH ×2 (08:32→12:11)
[2017-02-20] MEDS ORDERED: HYDROMORPHONE 2 MG/ML INJECTION IVP PRN (09:17)
[2017-02-20] MEDS: Oxycodone *IR* 15 MG TABLET PO PRN (09:51)
--- NOTE | 2017-02-20 14:39 | Discharge Instructions ---
Discharge Plan - Med Rec/Dispo Referrals/Follow Up: Usama Tellez [Family Provider] - (Later this week) [facility] Instructions: Gastroenteritis (GEN) Prescriptions: New Ondansetron Tab [Zofran Po] 4 mg PO Q4HR PRN #15 tab PRN Reason: Nausea &/Or Vomiting Continue Tramadol [Ultram] 50 mg PO Q6HR PRN PRN Reason: Pain Morphine Sulfate 15 mg PO BID Docusate Sodium [Colace] 100 mg PO TID Cyanocobalamin (B-12) [Vit. B-12] 1,000 mcg IM Q30D Lansoprazole [Prevacid] 15 mg PO DAILY Carboxymethylcell/Hypromellose [Genteal Gel Drops] 2 drop EACH EYE QID Magic Mouthwash [Magic Mouthwash (Lido/Maalox/Carafate)] 15 ml SSP QID Propranolol HCl [Inderal LA] 60 mg PO BID Oxycodone HCl [Oxycontin] 15 mg PO Q4H PRN PRN Reason: Pain Rizatriptan [Maxalt C Web Developer 10 mg] 10 mg PO PRN PRN PRN Reason: Headache Discharge Instructions/Outpatient Orders: Final Provider Discharge Instructions Location: Determined By Patient - Disposition 01 Discharged Home, Self-Care
--- NOTE | 2017-02-20 14:51 | Discharge Summary ---
Discharge Information Date of admission: 02/18/17 15:17 Anticipated date of discharge: 02/20/17 Attending Physician: Nyasia Lao MD Primary care physician: Usama Tellez - Discharge Diagnosis (1) Gastroenteritis Discharge Diagnosis: Acute gastroenteritis and rectosigmoid colitis with abdominal pain Dehydration (POA), resolved Leukocytosis (POA), resolved Hyperglycemia (POA), resolved Hypernatremia (POA), borderline Hypercalcemia (POA), resolved Essential hypertension Irritable bowel syndrome Sjogren's syndrome Depression Migraine headaches PUD Esophageal scarring Pernicious anemia Chronic pain Fibromyalgia Rheumatoid arthritis Seizure disorder (last seizure 2012) Restless leg syndrome - Procedures Procedures: Midline catheter-left upper extremity; removed at discharge - Laboratory Labs: On admission white count was 16.1 with hemoglobin 16.8; differential was notable for 86 neutrophils and 2 bands. Admission chemistries revealed blood sugar of 231 with subsequent normalization, and calcium of 11.2 which also normalized the following day. Liver enzymes were normal, troponin undetectable, and lipase 39. A1c 5.5 02/20/17 04:18 02/20/17 04:18 - Microbiology Blood cultures 2 negative after 48 hours - Radiology Radiology: CT abdomen/pelvis on 02/18/17 revealed: The lung bases are clear. The liver is normal. Gallbladder is surgically absent. The spleen, pancreas and adrenal glands are within normal limits. Kidneys are normal. Multiple vascular coils seen in the left ovarian vein. No abdominal or pelvic lymphadenopathy. Bladder is decompressed. Uterus is surgically absent. No free fluid. There is suggestion of wall thickening in the rectosigmoid colon which is incompletely evaluated without oral contrast in this region. Colon is decompressed overall. The appendix is normal. No evidence of a small bowel obstruction. Fluid-filled nondilated small bowel loops seen in the pelvis. Bone windows show no acute findings. Impression: Possible gastroenteritis and rectosigmoid colitis. No evidence of bowel obstruction. 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 She presented to his office today in [place] with abdominal pain and vomiting which started last night. She had been seen 02/14/17 in the [place] ER due to abdominal pain which was thought to be caused by constipation. She was given 2 enemas which she reports improved her symptoms. She started MiraLAX and reports her last dose was Tuesday. She wonders if that is what has caused her current symptoms. She states last evening she started to have abdominal pain and some nausea. She was unable to keep any of her bedtime medications down last night due to nausea and vomiting. She states the pain progressed overnight and she was unable to take any pills this morning. When she was seen in the office this morning, she reports her pain was 10/10. She was transferred to [facility] emergency room because the CT machine was down in the [place] clinic. In the emergency department she was given IV fluids, Compazine, Zofran, and Dilaudid. She had some improvement with her symptoms. Her CT showed gastroenteritis and rectosigmoid colitis. Given her continued need for IV fluids and pain control, patient was admitted to observation under the hospitalist service. Patient seen lying in bed with her present. She appears to be in pain, but is easily distractible. She rates her pain now 8/10. She reports her last bout of vomiting and diarrhea was in the emergency room. She has not noted any blood in her emesis or stool. States she normally has problems with constipation. Can usually go 2-3 weeks without a bowel movement. Last colonoscopy (by Dr. Silva, high school coach) approximately 4 years ago. She reports it was negative. At that time she also had an EGD which showed scarring and required dilation. Hospital Course This is a general summary of the patient's hospital course. For more details refer to the complete medical record. Hospital course: Assessment Acute gastroenteritis and rectosigmoid colitis with abdominal pain Dehydration (POA), resolved Leukocytosis (POA), resolved Hyperglycemia (POA), resolved Hypernatremia (POA), borderline Hypercalcemia (POA), resolved Essential hypertension Irritable bowel syndrome Sjogren's syndrome Depression Migraine headaches PUD Esophageal scarring Pernicious anemia Chronic pain Fibromyalgia Rheumatoid arthritis Seizure disorder (last seizure 2012) Restless leg syndrome Hospital course Mrs. Baker was hospitalized for management of dehydration with hemoconcentration, management of electrolyte abnormalities, and pain control in conjunction with acute gastroenteritis. Stool studies were requested however diarrhea resolved prior to hospitalization. She continued to have significant nausea for the first 12-24 hours of admission but was able to slowly resume intake of liquids with diet advanced to full liquids on the morning of 9/10. Regular diet was tried at noon 02/20 with minor retching. Overall she significantly improved and feels she can manage symptoms at home at this time but I have recommended that she back off to primarily liquid diet with very bland foods for an additional 24 hours and then advance as tolerated. The patient received IV fluids throughout the hospitalization and initially required IV narcotics and antiemetics for control of symptoms but was on an oral regimen on the date of discharge for management of all symptoms. Leukocytosis, hypercalcemia, and hyperglycemia were all present on admission and felt to be stress and dehydration induced. All resolved within the first 24 hours of hospitalization and were normal at discharge. BUN dropped from 15-7 with hydration and hemoglobin from 16.8 to 12.8. On the date of discharge the patient appeared significantly improved. She reported only mild residual abdominal discomfort in the epigastrium and did not feel that Levsin had provided any additive benefit compared to OxyIR and Zofran. She denied dyspnea or fevers. She reported minor nausea and "heaves" occasionally but nursing reported only 1-2 teaspoons of emesis. The patient is fully alert and is ambulating in the room without difficulty. Respirations are nonlabored. Abdomen is soft with minimal tenderness on palpation in the epigastrium but otherwise benign. Bowel sounds are present. Patient was felt stable to discharge on liquid/brat diet. She'll resume all home medications with addition of Zofran if needed. I've asked that she follow up with Dr. Lucy Vivas later this week for reassessment. Time spent with patient: discharge greater than 30 minutes Discharge Plan - Med Rec/Dispo Referrals/Follow Up: Usama Tellez [Family Provider] - (Later this week) Karan Instructions: Gastroenteritis (GEN) Prescriptions: New Ondansetron Tab [Zofran Po] 4 mg PO Q4HR PRN #15 tab PRN Reason: Nausea &/Or Vomiting Continue Tramadol [Ultram] 50 mg PO Q6HR PRN PRN Reason: Pain Morphine Sulfate 15 mg PO BID Docusate Sodium [Colace] 100 mg PO TID Cyanocobalamin (B-12) [Vit. B-12] 1,000 mcg IM Q30D Lansoprazole [Prevacid] 15 mg PO DAILY Carboxymethylcell/Hypromellose [Genteal Gel Drops] 2 drop EACH EYE QID Magic Mouthwash [Magic Mouthwash (Lido/Maalox/Carafate)] 15 ml SSP QID Propranolol HCl [Inderal LA] 60 mg PO BID Oxycodone HCl [Oxycontin] 15 mg PO Q4H PRN PRN Reason: Pain Rizatriptan [Maxalt Lease Administration Supervisor 10 mg] 10 mg PO PRN PRN PRN Reason: Headache Discharge Instructions/Outpatient Orders: Final Provider Discharge Instructions Location: Determined By Patient - Disposition 01 Discharged Home, Self-Care
[2017-02-22] MEDS ORDERED: SCOPOLAMINE PATCH REMOVAL TD SCH (14:45)
== END 2017-02-20 15:35 | disposition home or self-care (01) ==
LOC: MED 12:55 → ED 12:55 → MED 15:50
PROVIDERS: ADMIT Internal Medicine Infectious Disease; ATTEND Internal Medicine